=== PATIENT | female | born 1980 | race Caucasian/White ===

== ENCOUNTER → 2016-12-28 | Outpatient (CLI) | payer OTHER ==
[~2016-12-28] MED LIST: CIME200; COLA100C PO; FERR140T PO; IBUP-232 PO; IBUP800 PO; PRENCAP6 PO
== END ==
LOC: HPND 08:26
PROVIDERS: ATTEND Obstetrics & Gynecology
DX: O36.5930 Maternal care for other known or suspected poor fetal growth, third trimester, not applicable or unspecified (principal)
CPT/HCPCS: 76816

== ENCOUNTER 2017-01-11 15:28 | Inpatient (IN) | payer OTHER ==
[2017-01-11] VITALS (31 sets, daily range): BP systolic 97–145; BP diastolic 55–89; PULSE 72–151; RESP 18–20; TEMP 97.5–98.4
[~2017-01-11 15:28] MED LIST changes: -COLA100C PO; -IBUP-232 PO
[2017-01-11] MEDS ORDERED: LACTATED RINGER'S 1000 ML INJ 1,000 ML IV PRN (15:32)
[2017-01-11] MEDS ORDERED: ONDANSETRON HCL 4 MG/2 ML VIAL IV PRN (15:45)
[2017-01-11] MEDS ORDERED: LIDOCAINE HCL 1% 50 ML VIAL I-DERMAL PRN (15:45)
[2017-01-11] MEDS ORDERED: MINERAL OIL 10 ML VIAL TOPICAL PRN (15:45)
[2017-01-11] MEDS ORDERED: CITRIC ACID-SODIUM CITRATE LIQ 30 ML UDC PO SCH (15:45)
[2017-01-11] MEDS ORDERED: LIDOCAINE HCL 1% 50 ML VIAL INFIL PRN (15:45)
[2017-01-11] MEDS ORDERED: SODIUM CHLORID 0.9% 500 ML INJ 500 ML IV PRN (15:45)
[2017-01-11] MEDS ORDERED: SODIUM CHLOR 0.9% 1000 ML INJ 1,000 ML IV PRN (15:52)
[2017-01-11] MEDS ORDERED: LACTATED RINGER'S 1000 ML INJ 1,000 ML IV SCH (16:30)
[2017-01-11] MEDS ORDERED: PENICILLIN G POTASSIUM INJ 5,000,000 UNITS in SODIUM CHLORIDE 0.9% INJ 100 ML IV ONE (16:30)
[2017-01-11] MEDS ORDERED: OXYTOCIN 30 UNITS-500ML PREMIX 500 ML IV ONE (16:30)
[2017-01-11 17:01] LABS: AUTOMATED NEUTROPHIL # 7.9 TH/MM3 (1.8-7.7); BASOPHIL % 0.4 % (0.0-2.0); EOSINOPHIL # 0.2 TH/MM3 (0-0.4); EOSINOPHIL % 1.3 % (0.0-4.0); HEMATOCRIT 43.7 % (35.0-46.0); HEMO FLAGS DIFF FINAL; LYMPH % 24.9 % (9.0-44.0); LYMPHOCYTE # 2.9 TH/MM3 (1.0-4.8); MEAN CELL VOLUME 91.1 FL (80.0-100.0); MEAN CORPUSCULAR HEMOGLOBIN 30.2 PG (27.0-34.0); MEAN CORPUSCULAR HGB CONC 33.1 % (32.0-36.0); MONO % 5.4 % (0.0-8.0); PLATELET COUNT 183 TH/MM3 (150-450); RED CELL DISTRIBUTION WIDTH 13.7 % (11.6-17.2); WHITE BLOOD COUNT 11.7 TH/MM3 (4.0-11.0)
[2017-01-11] MEDS ORDERED: COLA100C PO (17:16)
[2017-01-11 17:22] LABS: BLOOD, URINE NEG (NEG); COMMENT (UR) CULT NOT INDICATED; CULTURE IF INDICATED CULT NOT INDICATED; GLUCOSE,URINE NEG (NEG); KETONE, URINE NEG (NEG); MUCUS URINE FEW /lpf (OCC); NITRITE,URINE NEG (NEG); PH, URINE 5.5 (5.0-8.5); URINE COLOR YELLOW (YELLW/STRAW)
[2017-01-11] MEDS ORDERED: OXYTOCIN 30 UNITS-500ML PREMIX 500 ML IV SCH (17:45)
[2017-01-11] MEDS ORDERED: fentaNYL 2MCG-BUPIV 0.125% INJ 100 ML ONE (19:28)
[2017-01-11] MEDS ORDERED: ePHEDrine/NS 25 MG/5 ML SYR ONE (19:36)
[2017-01-11] MEDS ORDERED: PENICILLIN G POTASSIUM INJ 2,500,000 UNITS in SODIUM CHLORIDE 0.9% INJ 100 ML IV SCH (21:00)
[2017-01-12] VITALS (15 sets, daily range): BP systolic 92–134; BP diastolic 31–83; PULSE 72–115; RESP 14–18; TEMP 97.7–98.7
[2017-01-12] MEDS ORDERED: ZOLPIDEM TARTRATE 5 MG TAB PO PRN (06:45)
[2017-01-12] MEDS ORDERED: BENZOCAINE 20% TOPICAL SPRAY 60 ML CAN TOPICAL PRN (06:45)
[2017-01-12] MEDS ORDERED: DISCONTINUE ALL PREVIOUS ORDERS ONE (06:45)
[2017-01-12] MEDS ORDERED: OXYTOCIN 30 UNITS-500ML PREMIX 500 ML IV SCH (06:45)
[2017-01-12] MEDS ORDERED: ACETAMINOPHEN 325 MG TAB PO PRN (06:45)
[2017-01-12] MEDS ORDERED: ONDANSETRON ODT 4 MG TAB PO PRN (06:45)
[2017-01-12] MEDS ORDERED: ALUMINUM/MAGNESIUM/SIMETH 30 ML CUP PO PRN (06:45)
[2017-01-12] MEDS ORDERED: WITCH HAZEL 50%/GLYCERIN 12.5% 40 PAD JAR TOPICAL PRN (06:45)
[2017-01-12] MEDS: IBUPROFEN 600 MG TAB PO PRN ×3 (07:13→23:14)
--- NOTE | 2017-01-12 09:05 | HHI.OB ---
Objective Vitals/I&O Vital Signs Date Time Temp Pulse Resp B/P (MAP) Pulse Ox O2 Delivery O2 Flow Rate FiO2 01/12/17 03:37 98.3 101 14 97/63 (74) 01/12/17 02:03 98.7 18 01/12/17 02:00 101 18 111/68 (82) 01/12/17 01:45 111 109/74 (86) 01/12/17 01:44 18 01/12/17 01:42 100 01/12/17 01:30 118/83 (95) 01/12/17 01:30 18 01/12/17 01:15 106 18 114/70 (85) 01/12/17 01:00 101 117/76 (90) 01/12/17 00:54 18 01/12/17 00:48 98.6 01/12/17 00:48 96 134/80 (98) 01/12/17 00:01 115 94/31 (52) 01/11/17 23:45 92 117/75 (89) 01/11/17 23:30 96 97/76 (83) 01/11/17 23:00 89 01/11/17 23:00 108/66 (80) 01/11/17 22:43 18 01/11/17 22:30 92 115/84 (94) 01/11/17 22:15 20 01/11/17 22:00 83 131/73 (92) 01/11/17 21:30 85 102/55 (71) 01/11/17 21:18 20 01/11/17 21:17 98.4 01/11/17 21:17 85 110/59 (76) 01/11/17 21:00 20 01/11/17 20:31 111/62 (78) 01/11/17 20:31 76 01/11/17 20:30 20 01/11/17 20:28 78 135/82 (99) 01/11/17 20:15 84 108/71 (83) 01/11/17 20:11 79 115/62 (79) 01/11/17 20:05 86 133/72 (92) 01/11/17 20:00 20 01/11/17 20:00 77 145/75 (98) 01/11/17 19:55 76 01/11/17 19:55 76 137/75 (95) 01/11/17 19:50 72 125/87 (100) 01/11/17 19:45 126/82 (97) 01/11/17 19:45 104 01/11/17 19:41 89 129/64 (85) 01/11/17 19:31 151 106/79 (88) 01/11/17 19:30 20 01/11/17 19:26 97 01/11/17 19:26 121/86 (98) 01/11/17 19:23 97.5 01/11/17 18:21 74 121/80 (94) 01/11/17 18:20 98.4 18 01/11/17 17:19 81 125/89 (101) 01/11/17 16:29 98.0 01/11/17 16:25 87 18 125/82 (96) Objective Remarks GENERAL: Well-nourished, well-developed patient. CARDIOVASCULAR: Regular rate and rhythm without murmurs, gallops, or rubs. RESPIRATORY: Breath sounds equal bilaterally. No accessory muscle use. ABDOMEN/GI: Abdomen soft, non-tender. Fundus: Firm, non-tender at umbilicus. GENITOURINARY: Light to moderate bleeding. EXTREMITIES: No cyanosis or edema, non-tender, without signs of DVT. Medications and IVs Current Medications Medications (Trade) Dose Ordered Sig/Ezra Route Start Time Stop Time Status Last Admin (Tylenol) 650 mg Q4H PRN PO 01/12/17 06:45 (Motrin) 600 mg Q6H PRN PO 01/12/17 06:45 01/12/17 07:13 (Americaine 20% Top Spr) 1 spray Q4H PRN TOPICAL 01/12/17 06:45 01/12/17 07:13 (Tucks Pads) 1 applic Q6H PRN TOPICAL 01/12/17 06:45 01/12/17 07:13 (Pearl-Colace) 2 tab Q12H PRN PO 01/12/17 06:45 (Ambien) 5 mg HS PRN PO 01/12/17 06:45 (M-M-R Ii Inj) 0.5 ml ONCE ONCE SQ 01/12/17 16:00 01/12/17 16:01 (Boostrix Inj) 0.5 ml ONCE ONCE IM 01/12/17 16:00 01/12/17 16:01 (Mag-Al Plus Susp Liq) 15 ml Q8H PRN PO 01/12/17 06:45 (Zofran Odt) 4 mg Q6H PRN PO 01/12/17 06:45 Oxytocin 500 ml @ 100 mls/hr Q5H IV 01/12/17 06:45 01/12/17 11:44 Assessment/Plan Problem List: (1) Normal vaginal delivery ICD Codes: O80 - Encounter for full-term uncomplicated delivery Plan: routine Assessment and Plan pt delivered just after midnight today pt doing well pain well managed with oral medication bonding with infant routine care Discharge Planning consider dc in 1-2 days Vijaya Gabriel Jan 12, 2017 09:05
--- NOTE | 2017-01-12 09:08 | HHI.DCPOC ---
Discharge Care Plan Diagnosis: (1) Normal vaginal delivery Your Health Problems Are: Vaginal delivery Report Symptoms to Your Doctor -Temperature above 100.5 degrees -Redness, of incision or excessive or foul smelling drainage -Unusual pain or calf pain -Increased vaginal bleeding -Painful or difficulty urinating -Feelings of extreme sadness or anxiety after 2 weeks Goals to Promote Your Health * To prevent worsening of your condition and complications * To maintain your health at the optimal level Directions to Meet Your Goals Take your medications as prescribed Follow your dietary instruction Follow activity as directed Ensure plenty of rest for recovery Drink fluids for hydration Keep your appointments as scheduled Take your immunizations and boosters as scheduled If your symptoms worsen call your PCP, if no PCP go to Urgent Care Center or Emergency Room Smoking is Dangerous to Your Health. Avoid second hand smoke Call the 24-hour crisis hotline for domestic abuse at Vijaya Gabriel Jan 12, 2017 09:08
--- NOTE | 2017-01-12 12:56 | HHI.DS ---
Admission Date Jan 11, 2017 at 15:41 Admitting Diagnosis TERM SROM CLEAR Diagnosis: (1) Normal vaginal delivery ICD Codes: O80 - Encounter for full-term uncomplicated delivery Vaginal Delivery: Normal : Male Brief History TERM SROM CLEAR FLUID AUGMENTED WITH PITOCIN Hospital Course ROUTINE CARE Pt Condition on Discharge: Good Discharge Disposition: Discharge Home Discharge Instructions Diet Instructions: As Tolerated, No Restrictions Activities You Can Perform: Regular-No Restrictions, Shower Only-No Bath Activities to Avoid: Strenuous Activity, Driving, Sexual Activity Follow up Referrals: PRODUCT DEVELOPMENT DIRECTOR - 2 Weeks @ [facility] Vijaya Gabriel Jan 12, 2017 12:56
[2017-01-12] MEDS ORDERED: MEASLES, MUMPS, RUBELLA VACCINE 0.5 ML VIAL SQ ONE (16:00)
[2017-01-12] MEDS ORDERED: DIPHTH/TETANUS/ACEL PERTUSSIS (BOOSTER) 0.5 ML VIAL/PFS IM ONE (16:00)
[2017-01-12] MEDS: DOCUSATE SODIUM 50 MG/SENNA 8.6 MG TAB PO PRN (17:16)
[2017-01-13 00:15] VITALS: BP 110/72; PULSE 74; RESP 16; TEMP 98.3
[2017-01-13] MEDS: IBUPROFEN 600 MG TAB PO PRN ×3 (06:24→18:43)
[2017-01-13 08:00] VITALS: BP 105/67; PULSE 75; RESP 18; TEMP 97.4
--- NOTE | 2017-01-13 09:12 | HHI.OB ---
Subjective Post Day: 1 Remarks no complaints Objective Vitals/I&O Vital Signs Date Time Temp Pulse Resp B/P (MAP) Pulse Ox O2 Delivery O2 Flow Rate FiO2 01/13/17 00:15 98.3 01/13/17 00:15 74 16 110/72 (85) 01/12/17 16:50 97.9 72 14 01/12/17 16:41 110/67 (81) Objective Remarks GENERAL: Well-nourished, well-developed patient. CARDIOVASCULAR: Regular rate and rhythm without murmurs, gallops, or rubs. RESPIRATORY: Breath sounds equal bilaterally. No accessory muscle use. ABDOMEN/GI: Abdomen soft, non-tender. Fundus: Firm, non-tender at umbilicus. GENITOURINARY: Light to moderate bleeding. EXTREMITIES: No cyanosis or edema, non-tender, without signs of DVT. Medications and IVs Current Medications Medications (Trade) Dose Ordered Sig/Ezra Route Start Time Stop Time Status Last Admin (Tylenol) 650 mg Q4H PRN PO 01/12/17 06:45 (Motrin) 600 mg Q6H PRN PO 01/12/17 06:45 01/13/17 06:24 (Americaine 20% Top Spr) 1 spray Q4H PRN TOPICAL 01/12/17 06:45 01/12/17 07:13 (Tucks Pads) 1 applic Q6H PRN TOPICAL 01/12/17 06:45 01/12/17 07:13 (Pearl-Colace) 2 tab Q12H PRN PO 01/12/17 06:45 01/12/17 17:16 (Ambien) 5 mg HS PRN PO 01/12/17 06:45 (Mag-Al Plus Susp Liq) 15 ml Q8H PRN PO 01/12/17 06:45 (Zofran Odt) 4 mg Q6H PRN PO 01/12/17 06:45 Assessment/Plan Problem List: (1) Normal vaginal delivery ICD Codes: O80 - Encounter for full-term uncomplicated delivery Plan: routine Assessment and Plan pt delivered just after midnight yest. pt doing well pain well managed with oral medication bonding with infant routine care Discharge Planning consider dc in 1 days Attending Attestation pt seen by Sarah Beth Guadalupe MD Jan 13, 2017 09:12
[2017-01-13 21:00] VITALS: BP 123/79; PULSE 76; RESP 16
[2017-01-14] MEDS: DOCUSATE SODIUM 50 MG/SENNA 8.6 MG TAB PO PRN (01:55)
[2017-01-14] MEDS: IBUPROFEN 600 MG TAB PO PRN ×2 (01:55→09:14)
[2017-01-14 08:50] VITALS: BP 99/68; PULSE 85; RESP 16; TEMP 97.8
--- NOTE | 2017-01-14 09:58 | HHI.OB ---
Subjective Post Day: 2 Remarks no c/o Objective Vitals/I&O Vital Signs Date Time Temp Pulse Resp B/P (MAP) Pulse Ox O2 Delivery O2 Flow Rate FiO2 01/13/17 21:00 76 16 123/79 (94) Objective Remarks GENERAL: Well-nourished, well-developed patient. CARDIOVASCULAR: Regular rate and rhythm without murmurs, gallops, or rubs. RESPIRATORY: Breath sounds equal bilaterally. No accessory muscle use. ABDOMEN/GI: Abdomen soft, non-tender. Fundus: Firm, non-tender at umbilicus. GENITOURINARY: Light to moderate bleeding. EXTREMITIES: No cyanosis or edema, non-tender, without signs of DVT. Medications and IVs Current Medications Medications (Trade) Dose Ordered Sig/Ezra Route Start Time Stop Time Status Last Admin (Tylenol) 650 mg Q4H PRN PO 01/12/17 06:45 (Motrin) 600 mg Q6H PRN PO 01/12/17 06:45 01/14/17 09:14 (Americaine 20% Top Spr) 1 spray Q4H PRN TOPICAL 01/12/17 06:45 01/12/17 07:13 (Tucks Pads) 1 applic Q6H PRN TOPICAL 01/12/17 06:45 01/12/17 07:13 (Pearl-Colace) 2 tab Q12H PRN PO 01/12/17 06:45 01/14/17 01:55 (Ambien) 5 mg HS PRN PO 01/12/17 06:45 (Mag-Al Plus Susp Liq) 15 ml Q8H PRN PO 01/12/17 06:45 (Zofran Odt) 4 mg Q6H PRN PO 01/12/17 06:45 Assessment/Plan Problem List: (1) Normal vaginal delivery ICD Codes: O80 - Encounter for full-term uncomplicated delivery Plan: routine Assessment and Plan s/p PPD #2 pt doing well pain well managed with oral medication bonding with routine care Discharge Planning routine Attending Attestation pt seen by Sarah Beth Guadalupe MD Jan 14, 2017 09:58
[2017-01-14] MEDS ORDERED: IBUP-232 PO (10:00)
== END 2017-01-14 13:42 | disposition home or self-care (01) | DRG 775 ==
LOC: HOBED 15:28 → H2EB 15:41 → H1EA 01-12 03:01
PROVIDERS: ADMIT Obstetrics & Gynecology; ATTEND Obstetrics & Gynecology
PROC: 0KQM0ZZ Repair Perineum Muscle, Open Approach (ICD-10-PCS; 2017-01-11)
PROC: 00HU33Z Insertion of Infusion Device into Spinal Canal, Percutaneous Approach (ICD-10-PCS; 2017-01-11)
PROC: 3E0R3CZ (ICD-10-PCS; 2017-01-11)
PROC: 10E0XZZ Delivery of Products of Conception, External Approach (ICD-10-PCS; principal; 2017-01-12)
DX: O70.1 Second degree perineal laceration during delivery (principal); Z37.0 Single live birth; Z3A.00 Weeks of gestation of pregnancy not specified
CPT/HCPCS: 59025; 81001; 85025; 86900; 86901; 90715; J2540; J2590; J3010; J7120